=== PATIENT | male | born 1965 | race Caucasian/White ===

== ENCOUNTER 2022-05-29 03:24 | Observation (INO) | payer BC ==
[2022-05-29] MEDS ORDERED: SODIUM CHLORIDE 0.9% 500 ML 500 ML IV STA (04:06)
[2022-05-29] MEDS ORDERED: SODIUM CHLORIDE 0.9% 1,000 ML IV STA (04:06)
--- NOTE | 2022-05-29 04:06 | ED ---
Arrhythmia/Palpitations HPI - General Chief Complaint: Arrhythmia/Palpitations Stated Complaint: SOB Source: patient, family, RN notes reviewed, old records reviewed Mode of arrival: wheelchair Limitations: no limitations - History of Present Illness Initial Comments: This is a 56-year-old male to the emergency department for evaluation. Patient coming in with increasing shortness of breath weakness lightheadedness especially change of position. Patient is no medical history the interjected patient is not by for quite some time. Patient is without chest pain but he does currently have lightheadedness and palpitations. No recent travel history sick contacts patient takes no significant medications on a daily basis. No surgical history. Patient denies any drugs or alcohol or any other complaints currently. MD Complaint: rapid heart beat, "heart racing", palpitations, irregular heart beat, atrial fibrillation -: hour(s) Context: occurred during rest Arrhythmia History: atrial fibrillation, SVT Associated Symptoms: chest pain, shortness of breath Treatments Prior to Arrival: other (0) - Related Data Previous Rx's Medication Instructions Recorded Amiodarone [Cordarone] 400 mg PO BID #120 tab 05/29/22 Apixaban [Eliquis] 5 mg PO BID #60 tab 05/29/22 Allergies Allergy/AdvReac Type Severity Reaction Status Date / Time No Known Allergies Allergy Verified 05/29/22 06:26 Review of Systems ROS Statement: Those systems with pertinent positive or pertinent negative responses have been documented in the HPI. ROS Other: All systems not noted in ROS Statement are negative. Past Medical History Past Medical History: Hypertension History of Any Multi-Drug Resistant Organisms: None Reported Past Surgical History: No Surgical Hx Reported Past Psychological History: No Psychological Hx Reported Smoking Status: Current every day smoker Past Alcohol Use History: Daily Past Drug Use History: None Reported - Past Family History Mother Family Medical History: Cancer General Exam Limitations: no limitations General appearance: alert, in no apparent distress, anxious Head exam: Present: atraumatic, normocephalic, normal inspection Eye exam: Present: normal appearance, PERRL, EOMI. Absent: scleral icterus, conjunctival injection, periorbital swelling ENT exam: Present: normal exam, mucous membranes moist Neck exam: Present: normal inspection. Absent: tenderness, meningismus, lymphadenopathy Respiratory exam: Present: normal lung sounds bilaterally. Absent: respiratory distress, wheezes, rales, rhonchi, stridor Cardiovascular Exam: Present: tachycardia, irregular rhythm, normal heart sounds. Absent: systolic murmur, diastolic murmur, rubs, gallop, clicks GI/Abdominal exam: Present: soft, normal bowel sounds. Absent: distended, tenderness, guarding, rebound, rigid Extremities exam: Present: normal inspection, full ROM, normal capillary refill. Absent: tenderness, pedal edema, joint swelling, calf tenderness Back exam: Present: normal inspection Neurological exam: Present: alert, oriented X3, CN II-XII intact Psychiatric exam: Present: normal affect, normal mood Skin exam: Present: warm, dry, intact, normal color. Absent: rash Course Vital Signs 05/29/22 05/29/22 05/29/22 03:26 04:05 04:52 Temperature 98.2 F Pulse Rate 128 H 148 H 131 H Pulse Rate [ 148 H Turning Machine Set Up Operator ] Respiratory 18 16 16 Rate Blood Pressure 172/82 112/82 114/96 O2 Sat by Pulse 93 L 92 L 96 Oximetry 05/29/22 05/29/22 05/29/22 04:56 05:10 05:30 Temperature Pulse Rate 101 H 122 H 108 H Pulse Rate [ Turning Machine Set Up Operator ] Respiratory 16 Rate Blood Pressure 132/84 109/69 112/88 O2 Sat by Pulse 96 Oximetry 05/29/22 05/29/22 06:00 06:24 Temperature Pulse Rate 124 H 133 H Pulse Rate [ Turning Machine Set Up Operator ] Respiratory Rate Blood Pressure 120/52 101/90 O2 Sat by Pulse Oximetry - Reevaluation(s) Reevaluation #1: 05/29/22 medical record is reviewed Reevaluation #2: 05/29/22 Patient informed results and questions answered Reevaluation #3: 05/29/22 Patient does have difficulty control heart rate will be admitted for further evaluation cardiology to see - Consultations Consultation #1: Spoke with Admitting physicians agreeable to admit this patient EKG Findings - EKG Comments: EKG Findings:: EKG shows A. fib with RVR 145 QRS 104 QTC 365 Medical Decision Making - Medical Decision Making 56 male to the emergency department with shortness of breath weakness and palpitations. Patient found to be in atrial fibrillation with RVR. Patient be admitted for cardiology evaluation management. - Lab Data Result diagrams: 05/29/22 03:54 05/29/22 03:54 Lab Results 05/29/22 05/29/22 05/29/22 Range/Units 03:54 03:54 03:54 WBC 6.7 (3.8-10.6) k/uL RBC 5.68 (4.30-5.90) m/uL Hgb 17.9 H (13.0-17.5) gm/dL Hct 55.0 H (39.0-53.0) % MCV 96.8 (80.0-100.0) fL MCH 31.6 (25.0-35.0) pg MCHC 32.6 (31.0-37.0) g/dL RDW 13.3 (11.5-15.5) % Plt Count 160 (150-450) k/uL MPV 7.5 Neutrophils % 65 % Lymphocytes % 20 % Monocytes % 8 % Eosinophils % 1 % Basophils % 2 % Neutrophils # 4.4 (1.3-7.7) k/uL Lymphocytes # 1.4 (1.0-4.8) k/uL Monocytes # 0.5 (0-1.0) k/uL Eosinophils # 0.1 (0-0.7) k/uL Basophils # 0.1 (0-0.2) k/uL PT 10.8 (9.0-12.0) sec INR 1.0 (<1.2) APTT 24.4 (22.0-30.0) sec Sodium 139 (137-145) mmol/L Potassium 4.6 (3.5-5.1) mmol/L Chloride 103 (98-107) mmol/L Carbon Dioxide 30 (22-30) mmol/L Anion Gap 6 mmol/L BUN 13 (9-20) mg/dL Creatinine 0.92 (0.66-1.25) mg/dL Est GFR (CKD-EPI)AfAm >90 (>60 ml/min/1.73 sqM) Est GFR (CKD-EPI)NonAf >90 (>60 ml/min/1.73 sqM) Glucose 122 H (74-99) mg/dL Calcium 9.3 (8.4-10.2) mg/dL Magnesium 2.1 (1.6-2.3) mg/dL Total Bilirubin 0.4 (0.2-1.3) mg/dL AST 39 (17-59) U/L ALT 49 (4-49) U/L Alkaline Phosphatase 118 (38-126) U/L Troponin I (0.000-0.034) ng/mL Total Protein 7.2 (6.3-8.2) g/dL Albumin 4.2 (3.5-5.0) g/dL TSH 2.070 (0.465-4.680) mIU/L 05/29/22 Range/Units 03:54 WBC (3.8-10.6) k/uL RBC (4.30-5.90) m/uL Hgb (13.0-17.5) gm/dL Hct (39.0-53.0) % MCV (80.0-100.0) fL MCH (25.0-35.0) pg MCHC (31.0-37.0) g/dL RDW (11.5-15.5) % Plt Count (150-450) k/uL MPV Neutrophils % % Lymphocytes % % Monocytes % % Eosinophils % % Basophils % % Neutrophils # (1.3-7.7) k/uL Lymphocytes # (1.0-4.8) k/uL Monocytes # (0-1.0) k/uL Eosinophils # (0-0.7) k/uL Basophils # (0-0.2) k/uL PT (9.0-12.0) sec INR (<1.2) APTT (22.0-30.0) sec Sodium (137-145) mmol/L Potassium (3.5-5.1) mmol/L Chloride (98-107) mmol/L Carbon Dioxide (22-30) mmol/L Anion Gap mmol/L BUN (9-20) mg/dL Creatinine (0.66-1.25) mg/dL Est GFR (CKD-EPI)AfAm (>60 ml/min/1.73 sqM) Est GFR (CKD-EPI)NonAf (>60 ml/min/1.73 sqM) Glucose (74-99) mg/dL Calcium (8.4-10.2) mg/dL Magnesium (1.6-2.3) mg/dL Total Bilirubin (0.2-1.3) mg/dL AST (17-59) U/L ALT (4-49) U/L Alkaline Phosphatase (38-126) U/L Troponin I <0.012 (0.000-0.034) ng/mL Total Protein (6.3-8.2) g/dL Albumin (3.5-5.0) g/dL TSH (0.465-4.680) mIU/L Critical Care Time Critical Care Time: Yes Total Critical Care Time: 31 Disposition Clinical Impression: Palpitations, Atrial fibrillation with rapid ventricular response, Atrial fibrillation, New onset atrial fibrillation Disposition: ADMITTED IP TO THIS HOSP Condition: Fair Is patient prescribed a controlled substance at d/c from ED?: No Time of Disposition: 05:45
[2022-05-29 04:14] LABS: Basophils # (A) 0.1 k/uL (0-0.2); Basophils % (A) 2 %; Eosinophils # (A) 0.1 k/uL (0-0.7); Eosinophils % (A) 1 %; HGB 17.9 gm/dL (13.0-17.5); Lymphocytes # (A) 1.4 k/uL (1.0-4.8); Lymphocytes % (A) 20 %; MCH 31.6 pg (25.0-35.0); MCHC 32.6 g/dL (31.0-37.0); MCV 96.8 fL (80.0-100.0); Mean Platelet Volume 7.5; Monocytes # (A) 0.5 k/uL (0-1.0); Monocytes % (A) 8 %; Neutrophils # (A) 4.4 k/uL (1.3-7.7); Neutrophils % (A) 65 %; Platelet Count 160 k/uL (150-450); RBC 5.68 m/uL (4.30-5.90); RDW 13.3 % (11.5-15.5); WBC 6.7 k/uL (3.8-10.6)
[2022-05-29 04:19] LABS: ALT 49 U/L (4-49); AST 39 U/L (17-59); African American GFR (CKD) >90 (>60 ml/min/1.73 sqM); Albumin 4.2 g/dL (3.5-5.0); Alkaline Phosphatase 118 U/L (38-126); Anion Gap 6 mmol/L; Blood Urea Nitrogen 13 mg/dL (9-20); Calcium 9.3 mg/dL (8.4-10.2); Carbon Dioxide 30 mmol/L (22-30); Chloride 103 mmol/L (98-107); Glucose 122 mg/dL (74-99); Magnesium 2.1 mg/dL (1.6-2.3); Non-African American GFR(CKD) >90 (>60 ml/min/1.73 sqM); Potassium 4.6 mmol/L (3.5-5.1); Sodium 139 mmol/L (137-145); Total Bilirubin 0.4 mg/dL (0.2-1.3); Total Protein 7.2 g/dL (6.3-8.2)
[2022-05-29] MEDS ORDERED: DILTIAZEM DRIP BOLUS FROM BAG 1 MG SOLN IV ONE (04:26)
[2022-05-29] MEDS ORDERED: DILTIAZEM 125 MG in SODIUM CHLORIDE 0.9% 100 ML IV SCH (04:30)
[2022-05-29 04:38] LABS: Partial Thromboplastin Time 24.4 sec (22.0-30.0); Prothrombin Time 10.8 sec (9.0-12.0)
--- NOTE | 2022-05-29 05:14 | XR ---
EXAMINATION TYPE: XR chest 2V DATE OF EXAM: 05/29/2022 COMPARISON: NONE HISTORY: Dysrhythmia. TECHNIQUE: Frontal and lateral views of the chest are obtained. FINDINGS: Overlying EKG leads are present. Suggestion of mild underlying emphysematous change on late ral view. There is no suspicious focal air space opacity, pleural effusion, or pneumothorax seen. Th e cardiac silhouette size is within normal limits. The osseous structures are intact. IMPRESSION: No acute process.
[2022-05-29] MEDS ORDERED: NITROGLYCERIN SL TABS 0.4 MG TAB SUBLINGUAL PRN (05:44)
[2022-05-29] MEDS ORDERED: HEPARIN SODIUM 1,000 UN/ML (10ML VL) IV ONE (05:44)
[2022-05-29] MEDS ORDERED: MORPHINE SULFATE 4 MG/ML SYRINGE IV PRN (05:44)
[2022-05-29] MEDS ORDERED: SODIUM CHLORIDE 0.9% 1,000 ML IV SCH (05:45)
[2022-05-29] MEDS ORDERED: HEPARIN SOD,PORK IN 0.45% NACL 25,000 UNIT in 0.45% NACL 1 250ML.BAG IV SCH (05:45)
--- NOTE | 2022-05-29 06:18 | P.HPIM ---
History of Present Illness H&P Date: 05/29/22 The patient is a 56-year-old male with no known PMH (has not seen a physician in 10 years) who presents to the emergency room with complaints of sudden onset of palpitations and shortness of breath. Patient reports that over the past few months, he has been expressing intermittent palpitations which are normally self-limiting. He reports however that earlier tonight at around 2 AM he was woken up from sleep with above-mentioned palpitations and shortness of breath but more severe in intensity, and persistent. He became alarmed and decided to come to the emergency room. EKG revealed A. fib with RVR at 145 bpm with left anterior fascicular block. Chest x-ray was unremarkable. Laboratory evaluation was unremarkable. The patient denied any prior history of A. fib or being on any anticoagulants. He reported a single episode of nonbloody nonbilious emesis in route to the hospital. He denies recent chest discomfort, fever, chills, cough, abdominal pain, diarrhea. Reports that his symptoms had improved significantly after arrival at the emergency room. Review of systems: Pertinent positives and negatives as discussed in HPI, a complete review of systems was performed and all other systems are negative. Physical examination: General: non toxic, no distress, appears at stated age, obese Derm: no unusual rashes/lesions, warm Head: atraumatic, normocephalic, symmetric Eyes: EOMI, no lid lag, anicteric sclera, pupils equal round reactive to light ENT: Nose and ears atraumatic Neck: No cervical lymphadenopathy, trachea midline, supple Mouth: no lip lesion, mucus membranes moist Cardiovascular: Irregularly irregular, tachycardic, no murmur, positive dorsalis pedis pulse bilateral, no edema Lungs: CTA bilateral, no rhonchi, no rales, no accessory muscle use Abdominal: soft, nontender to palpation, no guarding Ext: muscle strength 5 out of 5 in all 4 extremities grossly, no gross muscle atrophy, no contractures, Neuro: CN II-XI grossly intact, no gross focal neuro deficits Psych: Alert, oriented, appropriate affect Assessment/plan Newly diagnosed A. fib with RVR -Continue with heparin and Cardizem infusion -Cardiology consult -Cardiac monitoring -Echocardiogram Hyperglycemia -Check A1c DVT prophylaxis -Heparin infusion The patient is admitted with an anticipated greater than 2 midnight stay for evaluation of afib. CODE STATUS: Full Code Discussed with: Patient Anticipated discharge date: 2-[address]: Home Past Medical History Past Medical History: Hypertension History of Any Multi-Drug Resistant Organisms: None Reported Past Surgical History: No Surgical Hx Reported Past Psychological History: No Psychological Hx Reported Smoking Status: Current every day smoker Past Alcohol Use History: Daily Past Drug Use History: None Reported - Past Family History Mother Family Medical History: Cancer Medications and Allergies Allergies Allergy/AdvReac Type Severity Reaction Status Date / Time No Known Allergies Allergy Verified 05/29/22 03:34 Physical Exam Vitals: Vital Signs Temp Pulse Pulse Resp BP Pulse Ox 05/29/22 05:30 108 H 112/88 05/29/22 05:10 122 H 109/69 05/29/22 04:56 101 H 16 132/84 96 05/29/22 04:52 131 H 16 114/96 96 05/29/22 04:05 148 H 148 H 16 112/82 92 L 05/29/22 03:26 98.2 F 128 H 18 172/82 93 L Intake and Output 05/28/22 05/28/22 05/29/22 14:59 22:59 06:59 Intake Total 3.917 Balance 3.917 Intake: Intake, IV Titration 3.917 Amount Diltiazem 125 mg In 3.917 Sodium Chloride 0.9% 100 ml @ 5 MG/HR 5 mls/hr IV .Q24H [facility] Rx#:[id number] Other: Weight 131.542 kg Results CBC & Chem 7: 05/29/22 03:54 05/29/22 03:54 Labs: Abnormal Lab Results - Last 24 Hours (Table) 05/29/22 05/29/22 Range/Units 03:54 03:54 Hgb 17.9 H (13.0-17.5) gm/dL Hct 55.0 H (39.0-53.0) % Glucose 122 H (74-99) mg/dL
[2022-05-29] MEDS ORDERED: ATORVASTATIN 80 MG TAB PO SCH (09:00)
[2022-05-29] MEDS ORDERED: METOPROLOL TARTRATE 25 MG TAB PO SCH (09:00)
[2022-05-29] MEDS ORDERED: DEXTROSE 5% IN WATER 100 ML with AMIODARONE 150 MG IV ONE (10:33)
[2022-05-29] MEDS ORDERED: AMIODARONE 360 MG in DEXTROSE 5% IN WATER 200 ML IV ONE ×2 (10:33)
[2022-05-29] MEDS ORDERED: AMIODARONE 450 MG in DEXTROSE 5% IN WATER 250 ML IV SCH ×2 (10:45)
--- NOTE | 2022-05-29 11:35 | P.PN ---
Progress Note - Text Progress Note Date: 05/29/22 Patient was seen and examined. He is still in a-fib. He is feeling better however. Awaiting cardio evaluation.
[2022-05-29] MEDS ORDERED: NICOTINE 21MG/24HR PATCH TRANSDERM SCH (11:45)
--- NOTE | 2022-05-29 12:11 | P.CRDCN ---
History of Present Illness History of present illness: HISTORY OF PRESENTING ILLNESS This is a pleasant 56-year-old male past medical history significant for daily alcohol use (drinks 6-8 beers per day) and chronic nicotine dependence (smokes 1.5 PPD). 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 We have been asked to see in consultation for new onset atrial fibrillation. Patient presents emergency department with acute onset palpitations, shortness of breath, dizziness, generalized weakness and nausea and vomiting. He states that his symptoms of palpitations woke him up out of his sleep prior to admission and symptoms progressively got worse and came to the ER for further evaluation. He was found in A fib with RVR. Patient initially started on IV heparin and IV Cardizem drip. He denies any chest pain, syncope, near syncope. at bedside and endorses patient does snore heavily at night and she notices he does stop breathing at night. He denies any history of CAD, IA, hypertension, diabetes, hyperlipidemia. He denies any family history of heart disease. DIAGNOSTICS EKG reveals atrial fibrillation with rapid ventricular response, heart rate 145. Telemetry tracings indicate atrial fibrillation, heart rate or better controlled this morning however patient remains tachycardic up into the 120s at times. Chest xray no acute heart failure or consolidation noted. Laboratory reviewed, troponin negative 2, sodium 139, potassium 4.6, BUN 13, serum creatinine 0.9, magnesium 2.1, TSH within normal limits, WBC 6.7, hemoglobin 17.9, platelets 160 Current home medications include none REVIEW OF SYSTEMS At the time of my exam: CONSTITUTIONAL: Denies fever or chills. CARDIOVASCULAR: Denies chest pain, +shortness of breath, orthopnea, PND Endorses palpitations. RESPIRATORY: Denies cough. GASTROINTESTINAL: Denies abdominal pain, diarrhea, constipation,+ nausea +vomiting. MUSCULOSKELETAL: Denies myalgias. NEUROLOGIC: Denies numbness, tingling, headacbe or weakness. ENDOCRINE: Denies fatigue, weight change, polydipsia or polyurina. GENITOURINARY: Denies burning, hematuria or urgency with micturation. HEMATOLOGIC: Denies history of anemia or bleeding. PHYSICAL EXAMINATION Vitals Reviewed CONSTITUTIONAL: No apparent distress. HEENT: Head is normocephalic. Pupils are equal, round. Sclerae anicteric. Mucous membranes of the mouth are moist. No JVD. CHEST EXAMINATION: Lungs are clear to auscultation. No chest wall tenderness is noted on palpation or with deep breathing. HEART EXAMINATION: Irregular tachycardic rate and rhythm. S1, S2 heard. No murmurs, gallops or rub. ABDOMEN: Soft, nontender. Positive bowel sounds. EXTREMITIES: 2+ peripheral pulses, no lower extremity edema and no calf tenderness. SKIN: warm,dry NEUROLOGIC EXAMINATION: Patient is awake, alert and oriented x3. ASSESSMENT Paroxysmal atrial fibrillation with RVR -[id number] score 0 Daily alcohol use Chronic nicotine dependence Likely obstructive sleep apnea, needs outpatient testing PLAN Start IV amiodarone bolus and drip Discontinue cardizem Continue IV heparin Metoprolol tartrate 25mg BID Recommend SRIRAM cardioversion, patient is agreeable. I have discussed the risks, benefits and alternative therapies for the above-mentioned procedure and for both sedation/analgesia, as they pertain to this patient. The patient has indicated understanding and acceptance of the risks and procedures discussed. Questions have been answered appropriately and he is agreeable to move forward with the above-stated procedure. Unfortunately patient was did receive breakfast around 8am this morning. Plan for possible SRIRAM cardioversion later today with Dr. Reeves. Nurse practitioner note has been reviewed by physician. Signing provider agrees with the documented findings, assessment, and plan of care. Past Medical History Past Medical History: Hypertension History of Any Multi-Drug Resistant Organisms: None Reported Past Surgical History: No Surgical Hx Reported Past Psychological History: No Psychological Hx Reported Smoking Status: Current every day smoker Past Alcohol Use History: Daily Past Drug Use History: None Reported - Past Family History Mother Family Medical History: Cancer Medications and Allergies Home Medications Medication Instructions Recorded Confirmed Type No Known Home Medications 05/29/22 05/29/22 History Allergies Allergy/AdvReac Type Severity Reaction Status Date / Time No Known Allergies Allergy Verified 05/29/22 06:26 Physical Exam Vitals: Vital Signs Temp Pulse Pulse Resp BP BP Pulse Ox 05/29/22 08:10 98.2 F 95 16 135/86 92 L 05/29/22 06:24 133 H 101/90 05/29/22 06:00 124 H 120/52 05/29/22 05:30 108 H 112/88 05/29/22 05:10 122 H 109/69 05/29/22 04:56 101 H 16 132/84 96 05/29/22 04:52 131 H 16 114/96 96 05/29/22 04:05 148 H 148 H 16 112/82 92 L 05/29/22 03:26 98.2 F 128 H 18 172/82 93 L Intake and Output 05/28/22 05/29/22 05/29/22 22:59 06:59 14:59 Intake Total 14.084 Balance 14.084 Intake: Intake, IV Titration 14.084 Amount Diltiazem 125 mg In 14.084 Sodium Chloride 0.9% 100 ml @ 5 MG/HR 5 mls/hr IV .Q24H [facility] Rx#:[id number] Other: Weight 131.542 kg Results 05/29/22 03:54 05/29/22 03:54 Cardiac Enzymes 05/29/22 05/29/22 05/29/22 Range/Units 03:54 03:54 08:24 AST 39 (17-59) U/L Troponin I <0.012 <0.012 (0.000-0.034) ng/mL Coagulation 05/29/22 Range/Units 03:54 PT 10.8 (9.0-12.0) sec APTT 24.4 (22.0-30.0) sec CBC 05/29/22 Range/Units 03:54 WBC 6.7 (3.8-10.6) k/uL RBC 5.68 (4.30-5.90) m/uL Hgb 17.9 H (13.0-17.5) gm/dL Hct 55.0 H (39.0-53.0) % Plt Count 160 (150-450) k/uL Comprehensive Metabolic Panel 05/29/22 Range/Units 03:54 Sodium 139 (137-145) mmol/L Potassium 4.6 (3.5-5.1) mmol/L Chloride 103 (98-107) mmol/L Carbon Dioxide 30 (22-30) mmol/L BUN 13 (9-20) mg/dL Creatinine 0.92 (0.66-1.25) mg/dL Glucose 122 H (74-99) mg/dL Calcium 9.3 (8.4-10.2) mg/dL AST 39 (17-59) U/L ALT 49 (4-49) U/L Alkaline Phosphatase 118 (38-126) U/L Total Protein 7.2 (6.3-8.2) g/dL Albumin 4.2 (3.5-5.0) g/dL Current Medications Generic Name Dose Route Start Last Admin Trade Name Freq PRN Reason Stop Dose Admin Atorvastatin Calcium 80 mg 05/29/22 09:00 05/29/22 08:14 Atorvastatin 80 Mg Tab PO 80 mg DAILY [facility] Administration Sodium Chloride 1,000 mls @ 20 mls/hr 05/29/22 05:45 Saline 0.9% IV .Q24H [facility] Heparin Sodium/Sodium Chloride 250 mls @ 9.997 mls/hr 05/29/22 05:45 05/29/22 06:47 25,000 unit/ Sodium Chloride IV 7.6 units/kg/hr .Q24H [facility] 9.997 mls/hr Administration Protocol 7.6 UNITS/KG/HR Amiodarone HCl 360 mg/ 200 mls @ 33.333 mls/hr 05/29/22 10:33 Dextrose/Water IV 05/29/22 16:32 .Q6H [facility] Protocol 1 MG/MIN Amiodarone HCl 450 mg/ 250 mls @ 16.667 mls/hr 05/29/22 10:45 Dextrose/Water IV 05/30/22 04:44 .Q15H [facility] Protocol 0.5 MG/MIN Metoprolol Tartrate 25 mg 05/29/22 09:00 05/29/22 08:14 Metoprolol Tartrate 25 Mg Tab PO 25 mg BID [facility] Administration Morphine Sulfate 4 mg 05/29/22 05:44 Morphine Sulfate 4 Mg/Ml Syringe IV Q4HR PRN Chest Pain Nicotine 1 patch 05/29/22 11:45 Nicotine 21mg/24hr Patch TRANSDERM DAILY [facility] Nitroglycerin 0.4 mg 05/29/22 05:44 Nitroglycerin Sl Tabs 0.4 Mg Tab SUBLINGUAL Q5M PRN Chest Pain Intake and Output 05/28/22 05/29/22 05/29/22 22:59 06:59 14:59 Intake Total 14.084 Balance 14.084 Intake: Intake, IV Titration 14.084 Amount Diltiazem 125 mg In 14.084 Sodium Chloride 0.9% 100 ml @ 5 MG/HR 5 mls/hr IV .Q24H [facility] Rx#:[id number] Other: Weight 131.542 kg 05/29/22 03:54 05/29/22 03:54
[2022-05-29] MEDS ORDERED: HEPARIN SODIUM 1,000 UN/ML (10ML VL) IVP ONE (12:46)
[2022-05-29] MEDS ORDERED: ALPRAZolam 0.5 MG TAB PO STA (13:24)
[2022-05-29] MEDS ORDERED: SODIUM CHLORIDE 0.9% 1,000 ML IV ONE (16:22)
[2022-05-29] MEDS ORDERED: BENZOCAINE SPRAY 1 CAN TOPICAL ONE ×2 (16:24→16:32)
[2022-05-29] MEDS ORDERED: PROPOFOL 10 MG/ML 20 ML VIAL IV ONE (16:30)
[2022-05-29] MEDS ORDERED: THIAMINE 100 MG/ML 2 ML VIAL IM STA (17:02)
[2022-05-29] MEDS ORDERED: LORazepam 1 MG/0.5 ML VIAL IV PRN ×3 (17:02)
[2022-05-29 17:09] VITALS: RESP 18; TEMP 97
[2022-05-29] MEDS ORDERED: LORazepam 1 MG TAB PO PRN ×3 (17:15→17:16)
--- NOTE | 2022-05-29 17:22 | P.PN ---
Subjective Patient underwent successful SRIRAM and cardioversion and is in sinus rhythm. Possible discharge home today or tomorrow morning on amiodarone 400 mg twice a day and Eliquis. Objective - Vital Signs Vital signs: Vital Signs Temp 97 F L 05/29/22 16:58 Pulse 62 05/29/22 17:13 Resp 18 05/29/22 17:13 BP 131/75 05/29/22 17:13 Pulse Ox 97 05/29/22 17:13 FiO2 Intake & Output 05/28/22 05/29/22 05/29/22 18:59 06:59 18:59 Intake Total 254.084 665.314 Balance 254.084 665.314 Weight 131.542 kg 131.542 kg Intake: IV 0 Intake, IV Titration 14.084 305.314 Amount Dextrose 5% in Water 100 100 ml @ 618 mls/hr IV .Q10M [facility] with Amiodarone 150 mg Rx#:[id number] Diltiazem 125 mg In 14.084 Sodium Chloride 0.9% 100 ml @ 5 MG/HR 5 mls/hr IV .Q24H [facility] Rx#:[id number] Heparin Sod,Pork in 0.45% 65.314 NaCl 25,000 unit In 0.45 % NaCl 1 250ml.bag @ 7.6 UNITS/KG/HR 9.997 mls/hr IV .Q24H [facility] Rx#: [id number] Sodium Chloride 0.9% 1, 140 000 ml @ 20 mls/hr IV . Q24H [facility] Rx#:[id number] Oral 240 360 Other: # Voids 2 - Labs CBC & Chem 7: 05/29/22 03:54 05/29/22 03:54 Labs: Abnormal Lab Results - Last 24 Hours (Table) 05/29/22 05/29/22 Range/Units 03:54 03:54 Hgb 17.9 H (13.0-17.5) gm/dL Hct 55.0 H (39.0-53.0) % Glucose 122 H (74-99) mg/dL
--- NOTE | 2022-05-29 17:22 | P.TEE ---
Description of Procedure(s): Procedure performed: Transesophageal Echocardiogram with color flow doppler, pulsed wave doppler and continuous wave doppler, moderate conscious sedation Moderate conscious sedation: Moderate conscious sedation was supplied by anesthesia, see separate report Complications: none Indications: Symptomatic A. fib PROCEDURE: After the risks, benefits and alternatives of the above mentioned procedure was explained in detail with the patient, informed consent was obtained. Patient was brought to the lab in a fasting state. Patient was given sedation by anesthesia. The throat was sprayed with Hurricane to anesthetize the throat. A lubricated Omni probe was then introduced into the esophagus and stomach and multiple views were obtained. 2D echo with color flow doppler, pulsed wave doppler and continuous wave doppler was utilized. Agitated saline bubbles were injected to assess for any intra-atrial shunt. The probe was then removed. Synchronized cardioversion was performed with 200 J 1 with resultant sinus rhythm. Patient tolerated the procedure well. Patient was transferred to the post procedure area in stable and satisfactory condition. FINDINGS: 1. The aortic valve is tricuspid and functioning normally without any significant aortic stenosis or aortic regurgitation. 2. The mitral valve appears be normal with mild mitral regurgitation. 3. Tricuspid valve appears to be normal without significant regurgitation. 4. The interatrial septum is intact. No evidence of PFO. 5. Left atrial appendage is free of clot. 6. Left ventricular size and function is normal with left ventricular ejection fraction 55%.
[2022-05-29 17:24] VITALS: BP 141/75; PULSE 64
--- NOTE | 2022-05-29 18:43 | CA ---
Transthoracic Echo Report Name: Jose Chang Age: 56 Gender: M : 1965 Exam Date: 05/29/2022 12:53 Exam Location: [facility] Ht (in): 76 Wt (lb): 290 Ordering Physician: Joana Camp MD Attending/Referring Phys: Marketing Development Representative Irlanda Mcintosh RDCS Procedure CPT: Indications: a. fib Cardiac Hx: Technical Quality: Fair Contrast 1: Total Dose (mL): Contrast 2: Total Dose (mL): MEASUREMENTS (Male / Female) Normal Values 2D ECHO LV Diastolic Diameter PLAX 4.9 cm 4.2 - 5.9 / 3.9 - 5.3 cm LV Systolic Diameter PLAX 3.1 cm IVS Diastolic Thickness 1.6 cm 0.6 - 1.0 / 0.6 - 0.9 cm LVPW Diastolic Thickness 1.5 cm 0.6 - 1.0 / 0.6 - 0.9 cm LV Relative Wall Thickness 0.6 RV Internal Dim ED PLAX 4.2 cm LA Volume 81.2 cm??? 18 - 58 / 22 - 52 cm??? M-MODE Aortic Root Diameter MM 3.2 cm LA Systolic Diameter MM 4.5 cm LA Ao Ratio MM 1.4 AV Cusp Separation MM 2.1 cm DOPPLER AV Peak Velocity 145.5 cm/s AV Peak Gradient 8.5 mmHg LVOT Peak Velocity 112.3 cm/s LVOT Peak Gradient 5.0 mmHg TR Peak Velocity 257.5 cm/s TR Peak Gradient 26.5 mmHg Right Ventricular Systolic Press 31.5 mmHg FINDINGS Left Ventricle Moderately increased septal wall thickness. Normal left ventricular systolic function with no obvious regional wall motion abnormalities. Left ventricular ejection fraction is estimated at 55-60 %. Right Ventricle Moderate right ventricular dilatation. Right Atrium Moderate right atrial dilatation. Left Atrium Severely increased left atrial volume. Mitral Valve Mild mitral annular calcification. Xdkv-gu-[id number] regurgitation. Aortic Valve Trileaflet aortic valve. No aortic valve stenosis or regurgitation. Tricuspid Valve Mild tricuspid regurgitation. Pulmonic Valve Trace pulmonic regurgitation. Pericardium No pericardial effusion. Aorta Normal size aortic root and proximal ascending aorta. CONCLUSIONS Normal left ventricular dimension and systolic function [id number] mitral regurgitation Previewed by: Dr. Estevan Pulido MD (Electronically Signed) Final Date: 29 May 2022 18:42
[2022-05-29] MEDS ORDERED: AMIODARONE 200 MG TAB PO SCH (21:00)
[2022-05-29] MEDS ORDERED: APIXABAN 5 MG TAB PO SCH (21:00)
[2022-05-30] MEDS ORDERED: THIAMINE 100 MG TAB PO SCH (07:30)
[2022-05-30] MEDS ORDERED: ASPIRIN 325 MG TAB PO SCH (09:00)
--- NOTE | 2022-05-30 14:25 | P.DS ---
Providers Date of admission: 05/29/22 05:44 Expected date of discharge: 05/30/22 Attending physician: Joana Camp MD Consults: 05/29/22 05:44 Consult Physician Urgent Consulting Provider: Suzanne Mahajan Consult Reason/Comments: afibRVR Do you want consulting provider notified?: Yes Primary care physician: Stated None Hospital Course: 56-year-old male with no known PMH (has not seen a physician in 10 years) who presents to the emergency room with complaints of sudden onset of palpitations and shortness of breath. Patient reports that over the past few months, he has been having intermittent palpitations which are normally self-limiting. He became alarmed after he noticed worsening of those palpitations and decided to come to the emergency room. He reported a single episode of nonbloody nonbilious emesis in route to the hospital. He denies recent chest discomfort, fever, chills, cough, abdominal pain, diarrhea. In the ER EKG revealed A. fib with RVR at 145 bpm with left anterior fascicular block. Chest x-ray was unremarkable. Laboratory evaluation was unremarkable. Patient was admitted, he was started on heparin and Cardizem drips. Heart rate was controlled after that but he remained in A. fib. Due to that he was seen by cardiology who did a SRIRAM with cardioversion. SRIRAM did not show any blood clots in the heart. It showed normal structure of the valves and normal EF. After cardioversion he remained in normal sinus rhythm. He was initiated on eliquis and amiodarone according to cardiology recommendations. He was subsequently discharged home in stable condition. Time for discharge 35 minutes. Patient Condition at Discharge: Fair Plan - Discharge Summary Discharge Rx Participant: Yes New Discharge Prescriptions: New Amiodarone [Cordarone] 400 mg PO BID #120 tab Apixaban [Eliquis] 5 mg PO BID #60 tab Discharge Medication List Amiodarone [Cordarone] 400 mg PO BID #120 tab 05/29/22 [Rx] Apixaban [Eliquis] 5 mg PO BID #60 tab 05/29/22 [Rx] Follow up Appointment(s)/Referral(s): Dario Reeves DO [STAFF PHYSICIAN] - 1 Week (Pt to make follow-up appointment, as office is closed at time of discharge. Ensure office is aware that the appointment is following a hospital stay and that the pt had a cardioversion on 05/29/22.) None,Stated [Primary Care Provider] - 1-2 days (Pt will need a primary care provider to follow up with for medication refills and general health.) Juan Bernard [STAFF PHYSICIAN] - 1 Week Patient Instructions/Handouts: A-fib (Atrial Fibrillation) (DC), Cardioversion (DC) Activity/Diet/Wound Care/Special Instructions: Activity: as tolerated Diet: regular Special Instructions: Please picker and sorter load and unload your new prescriptions first thing in the morning. You will need to start them first thing tomorrow morning. Discharge Disposition: HOME SELF-CARE
== END 2022-05-29 19:05 | disposition home or self-care (01) ==
LOC: EC 03:24 → 3SCARD 05:44 → INTOOBSV 05:44 → 3SCARD 06:03 → UNDODISIN 19:05
PROVIDERS: ADMIT Internal Medicine; ATTEND Internal Medicine
PROC: B246ZZ4 Ultrasonography of Right and Left Heart, Transesophageal (ICD-10-PCS; principal; 2022-05-29 10:00)
PROC: 5A2204Z Restoration of Cardiac Rhythm, Single (ICD-10-PCS; principal; 2022-05-29 10:00)
DX: I48.0 Paroxysmal atrial fibrillation (principal); I10 Essential (primary) hypertension; I44.4 Left anterior fascicular block; I47.1 Supraventricular tachycardia; I08.1 Rheumatic disorders of both mitral and tricuspid valves; R73.9 Hyperglycemia, unspecified; Z80.9 Family history of malignant neoplasm, unspecified; F17.210 Nicotine dependence, cigarettes, uncomplicated; Z28.310 Unvaccinated for COVID-19
CPT/HCPCS: 96376 ×2; 96366 ×2; 96361; 96365; 96367; 99291; 36415; 93005 ×2; 93312; 93320; 93306; 93325; 92960; 80053; 83735; 84443; 84484; 85025; 85610; 85730; 71046; G0378; S4990; J0282 ×2; J1644 ×2; J2704; 96375; 99285

== ENCOUNTER 2023-04-22 07:25 | Observation (INO) | payer BC ==
[2023-04-22] MEDS ORDERED: SODIUM CHLORIDE 0.9% 500 ML 500 ML IV STA (07:47)
--- NOTE | 2023-04-22 08:08 | XR ---
EXAMINATION TYPE: XR chest 2V DATE OF EXAM: 04/22/2023 COMPARISON: 05/29/2022 HISTORY: 57-year-old male dysrhythmia TECHNIQUE: PA and lateral views FINDINGS: Heart upper limits of normal size. Aorta and pulmonary vasculature normal limits. Mild interstitial p rominence is unchanged. No consolidation or pleural effusion. IMPRESSION: Borderline heart size. Chronic changes. No definite acute process.
[2023-04-22] MEDS: DILTIAZEM DRIP BOLUS FROM BAG 1 MG SOLN IV ONE ×2 (08:17→08:19)
[2023-04-22] MEDS: DILTIAZEM 125 MG in SODIUM CHLORIDE 0.9% 100 ML IV SCH ×2 (08:19→16:44)
[2023-04-22 08:27] LABS: ALT 42 U/L (4-49); AST 30 U/L (17-59); African American GFR (CKD) >90 (>60 ml/min/1.73 sqM); Albumin 3.9 g/dL (3.5-5.0); Alkaline Phosphatase 82 U/L (38-126); Anion Gap 5 mmol/L; Blood Urea Nitrogen 12 mg/dL (9-20); Calcium 8.9 mg/dL (8.4-10.2); Carbon Dioxide 28 mmol/L (22-30); Chloride 105 mmol/L (98-107); Glucose 109 mg/dL (74-99); HCT 51.7 % (39.0-53.0); MCH 30.4 pg (25.0-35.0); MCHC 32.9 g/dL (31.0-37.0); MCV 92.6 fL (80.0-100.0); Mean Platelet Volume 7.8; Non-African American GFR(CKD) >90 (>60 ml/min/1.73 sqM); Platelet Count 156 k/uL (150-450); Potassium 5.2 mmol/L (3.5-5.1); RBC 5.58 m/uL (4.30-5.90); RDW 13.3 % (11.5-15.5); Sodium 138 mmol/L (137-145); Total Bilirubin 0.4 mg/dL (0.2-1.3); Total Protein 6.8 g/dL (6.3-8.2); WBC 4.7 k/uL (3.8-10.6)
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
[2023-04-22 09:03] LABS: Lymphocytes # (M) 1.22 k/uL (1.0-4.8); Monocytes # (M) 0.42 k/uL (0-1.0); Neutrophils # (M) 3.06 k/uL (1.3-7.7); Neutrophils % (M) 65 %; Nucleated Red Blood Cells 0 /100 WBC (0-0); Total Cells Counted 100
[2023-04-22 09:04] LABS: RBC Morphology Normal
[2023-04-22] MEDS ORDERED: NITROGLYCERIN SL TABS 0.4 MG TAB SUBLINGUAL PRN (10:09)
[2023-04-22] MEDS ORDERED: APIXABAN 5 MG TAB PO SCH (10:10)
[2023-04-22] MEDS ORDERED: NICOTINE 21MG/24HR PATCH TRANSDERM STA (11:04)
--- NOTE | 2023-04-22 11:06 | P.HPIM ---
History of Present Illness This is a pleasant 57 years old male with past medical history of atrial Fibrillation, Hypertension Patient states that he was diagnosed with A. fib last May and his been taken Eliquis 5 mg and amiodarone 200 mg with no problem Recently he has been following up with his coating machine operator helper was stopped the stool medication because he thought he does not need them anymore. Patient did not have problem for example bleeding from Eliquis. This morning start having palpitation. He denies any other symptoms. Chest pain dizziness or dyspnea. No change in urine or bowel habits. No fever. No headache weakness numbness or blurred vision or slurred speech Patient smokes 1 pack per day and he was consulted. He drinks beers few of them every day and he was counseled to quit. No illicit tracts His heart rate was elevated 1:30 on admission EKG showing atrial fibrillation with RVR and 105 Another EKG showing A. fib and RVR at the rate of 99 Chest x-ray: No acute process. Patient is started on Cardizem drip and Eliquis and emergency room Review of Systems Review of systems CONSTITUTIONAL: No fever, no malaise, no fatigue. HEENT: No recent visual problems or hearing problems. Denied any sore throat. CARDIOVASCULAR: No orthopnea, PND, no palpitations, no syncope. PULMONARY: No shortness of breath, no cough, no hemoptysis. GASTROINTESTINAL: No diarrhea, no nausea, no vomiting, no abdominal pain. Normoactive bowel sounds. NEUROLOGICAL: No headaches, no weakness, no numbness. HEMATOLOGICAL: Denies any bleeding or petechiae. GENITOURINARY: Denies any burning micturition, frequency, or urgency. MUSCULOSKELETAL/RHEUMATOLOGICAL: Denies any joint pain, swelling, or any muscle pain. ENDOCRINE: Denies any polyuria or polydipsia. Past Medical History Past Medical History: Atrial Fibrillation, Hypertension History of Any Multi-Drug Resistant Organisms: None Reported Past Surgical History: Hernia Repair Additional Past Surgical History / Comment(s): hernia repair in 1987 Past Anesthesia/Blood Transfusion Reactions: No Reported Reaction Past Psychological History: No Psychological Hx Reported Smoking Status: Current every day smoker Past Alcohol Use History: Daily Past Drug Use History: None Reported - Past Family History Mother Family Medical History: Cancer Medications and Allergies Home Medications Medication Instructions Recorded Confirmed Type No Known Home Medications 04/22/23 04/22/23 History Allergies Allergy/AdvReac Type Severity Reaction Status Date / Time No Known Allergies Allergy Verified 04/22/23 09:31 Physical Exam Vitals: Vital Signs Temp Pulse Pulse Resp BP Pulse Ox 04/22/23 09:30 98 18 132/80 95 04/22/23 09:00 93 20 121/87 97 04/22/23 08:11 114 H 18 96 04/22/23 08:00 106 H 106 H 18 147/104 96 04/22/23 07:29 98 F 130 H 18 150/90 97 Intake and Output 04/21/23 04/22/23 04/22/23 22:59 06:59 14:59 Intake Total 8.083 Balance 8.083 Intake: Intake, IV Titration 8.083 Amount Diltiazem 125 mg In 8.083 Sodium Chloride 0.9% 100 ml @ 5 MG/HR 5 mls/hr IV .Q24H [facility] Rx#:[id number] Other: Weight 131.542 kg GENERAL: The patient is alert and oriented x3, not in any acute distress. Well developed, well nourished. HEENT: Pupils are round and equally reacting to light. EOMI. No scleral icterus. No conjunctival pallor. Normocephalic, atraumatic. No pharyngeal erythema. No thyromegaly. CARDIOVASCULAR: S1 and S2 present. No murmurs, rubs, or gallops. PULMONARY: Chest is clear to auscultation, no wheezing or crackles. ABDOMEN: Soft, nontender, nondistended, normoactive bowel sounds. No palpable organomegaly. MUSCULOSKELETAL: No joint swelling or deformity. EXTREMITIES: No cyanosis, clubbing, or pedal edema. NEUROLOGICAL: Gross neurological examination did not reveal any focal deficits. SKIN: No rashes. no petechiae. Results CBC & Chem 7: 04/22/23 07:55 04/22/23 07:55 Labs: Abnormal Lab Results - Last 24 Hours (Table) 04/22/23 Range/Units 07:55 Potassium 5.2 H (3.5-5.1) mmol/L Glucose 109 H (74-99) mg/dL Assessment and Plan Assessment: A. fib with RVR Nicotine dependence, patient has consulted and is agreeable to the nicotine patch Alcohol use disorder Hypertension, currently on no medication Obesity with BMI of 35.3 Plan: Continue with Cardizem drip Continue with Eliquis 5 mg twice a day, patient is aware of risk of bleeding and he is agreeable to continue with a blood thinner now Cardiology consult Start CIWA protocol and thiamine Labs and medication were reviewed.. Continue same treatment. Continue with symptomatic treatment. Resume home medication. Monitor labs and vitals. DVT and GI prophylaxis. Further recommendations as per clinical course of the patient DVT prophylaxis: Eliquis GI Prophylaxis: Pepcid PT/OT: Pending Prognosis is guarded
[2023-04-22] MEDS ORDERED: LORazepam 1 MG TAB PO PRN ×3 (11:11)
[2023-04-22] MEDS: THIAMINE 100 MG TAB PO SCH (11:41)
[2023-04-22] MEDS: LORazepam 0.5 MG TAB PO PRN ×2 (15:51→21:34)
[2023-04-22] MEDS ORDERED: FAMOTIDINE 20 MG/2 ML VIAL IV SCH (21:00)
[2023-04-22] MEDS: APIXABAN 5 MG TAB PO SCH (21:34)
[2023-04-23 03:11] VITALS: PULSE 68
[2023-04-23 07:35] LABS: Basophils % (A) 1 %; Eosinophils # (A) 0.1 k/uL (0-0.7); Eosinophils % (A) 2 %; HCT 50.8 % (39.0-53.0); HGB 16.3 gm/dL (13.0-17.5); Lymphocytes # (A) 1.3 k/uL (1.0-4.8); Lymphocytes % (A) 22 %; MCH 30.6 pg (25.0-35.0); MCHC 32.1 g/dL (31.0-37.0); MCV 95.1 fL (80.0-100.0); Mean Platelet Volume 7.4; Monocytes # (A) 0.4 k/uL (0-1.0); Monocytes % (A) 6 %; Neutrophils # (A) 3.9 k/uL (1.3-7.7); Neutrophils % (A) 65 %; Platelet Count 162 k/uL (150-450); RBC 5.34 m/uL (4.30-5.90); RDW 12.9 % (11.5-15.5)
[2023-04-23 07:42] LABS: African American GFR (CKD) >90 (>60 ml/min/1.73 sqM); Anion Gap 4 mmol/L; Blood Urea Nitrogen 15 mg/dL (9-20); Calcium 8.7 mg/dL (8.4-10.2); Carbon Dioxide 29 mmol/L (22-30); Chloride 105 mmol/L (98-107); Glucose 117 mg/dL (74-99); Non-African American GFR(CKD) >90 (>60 ml/min/1.73 sqM); Potassium 4.5 mmol/L (3.5-5.1); Sodium 138 mmol/L (137-145)
[2023-04-23 07:55] VITALS: BP 153/91; RESP 20; TEMP 97.6
--- NOTE | 2023-04-23 07:58 | CONS ---
CONSULTATION CHIEF COMPLAINT: Palpitations. HISTORY OF PRESENT ILLNESS: Jose is a 57-year-old gentleman with history of atrial fibrillation, who presented to hospital with sustained palpitations and was found to be in atrial fibrillation with poorly controlled ventricular rate. At the time of my evaluation, he was on Cardizem with better controlled ventricular rate and started on Eliquis. The patient denies any chest pain, difficulty in breathing, dizziness, or syncope. His lab showed that the troponin was negative. Hemoglobin was normal. Platelet count is 156. There is no prior history of hypertension, diabetes, dyslipidemia. There is no history of cardiomyopathy or congestive heart failure. PAST MEDICAL HISTORY: Significant for paroxysmal atrial fibrillation. MEDICATIONS AT HOME: He was not on any. FAMILY HISTORY: Negative for premature coronary artery disease. SOCIAL HISTORY: Negative for smoking, EtOH abuse, or drug abuse. REVIEW OF SYSTEMS: 14 out of 14 review of systems has been performed. Pertinents are as documented. PHYSICAL EXAMINATION: GENERAL: Comfortable at rest. VITAL SIGNS: Stable. NECK: There is no jugular venous distention. CHEST: Reveals good air entry bilaterally. HEART: Reveals first and second heart sounds. Irregular rhythm. No murmur. ABDOMEN: Soft. EXTREMITIES: Did not reveal any edema. Peripheral pulses are felt. COVER SEAMER: Did not reveal focal neurological deficits. ASSESSMENT: Paroxysmal atrial fibrillation. PLAN: I will continue the patient on Cardizem and Eliquis. If he remains in AFib, tomorrow Dr. Reeves, who cardioverted him last, will do a SRIRAM cardioversion. MMODL / IJN: [id number] /
[2023-04-23] MEDS: THIAMINE 100 MG TAB PO SCH (08:35)
[2023-04-23] MEDS: APIXABAN 5 MG TAB PO SCH (08:35)
[2023-04-23] MEDS ORDERED: FAMOTIDINE 20 MG TAB PO SCH (09:00)
--- NOTE | 2023-04-23 09:06 | CA ---
Transthoracic Echo Report Name: Jose Chang Age: 57 Gender: M : 1965 Exam Date: 04/23/2023 08:09 Exam Location: [place] [facility] Ht (in): 76 Wt (lb): 290 Ordering Physician: Lloyd Garner MD ([id number]) Attending/Referring Phys: Patsy HINOJOSA Rn Imaging Lashon Ly RDCS Procedure CPT: Indications: afib rvr Cardiac Hx: Technical Quality: Good Contrast 1: Total Dose (mL): Contrast 2: Total Dose (mL): MEASUREMENTS (Male / Female) Normal Values 2D ECHO LV Diastolic Diameter PLAX 5.0 cm 4.2 - 5.9 / 3.9 - 5.3 cm LV Systolic Diameter PLAX 3.5 cm IVS Diastolic Thickness 1.5 cm 0.6 - 1.0 / 0.6 - 0.9 cm LVPW Diastolic Thickness 1.4 cm 0.6 - 1.0 / 0.6 - 0.9 cm LV Relative Wall Thickness 0.6 RV Internal Dim ED PLAX 3.7 cm LA Systolic Diameter LX 4.1 cm 3.0 - 4.0 / 2.7 - 3.8 cm LA Volume 67.7 cm??? 18 - 58 / 22 - 52 cm??? M-MODE Aortic Root Diameter MM 3.6 cm AV Cusp Separation MM 2.3 cm DOPPLER AV Peak Velocity 145.6 cm/s AV Peak Gradient 8.5 mmHg MV Area PHT 4.8 cm??? Mitral E Point Velocity 98.7 cm/s Mitral A Point Velocity 74.0 cm/s Mitral E to A Ratio 1.3 MV Deceleration Time 159.3 ms MV E' Velocity 8.5 cm/s Mitral E to MV E' Ratio 11.6 FINDINGS Left Ventricle Left ventricular ejection fraction is estimated at 55-60 %. Left ventricular cavity size normal. Moderate concentric left ventricular hypertrophy. Right Ventricle Mild right ventricular dilatation. Unable to estimate the right ventricular systolic pressure. Right Atrium Normal right atrial size. Left Atrium Mildly increased left atrial diameter. Mildly increased left atrial volume. Mildly increased left atrial area. Mitral Valve Structurally normal mitral valve. No mitral stenosis, regurgitation or prolapse. Aortic Valve Trileaflet aortic valve. No aortic valve stenosis or regurgitation. Tricuspid Valve Structurally normal tricuspid valve. No tricuspid stenosis, regurgitation or prolapse. Pulmonic Valve Pulmonic valve not well visualized. Pericardium Normal pericardium. No pericardial effusion. Aorta Normal size aortic root and proximal ascending aorta. CONCLUSIONS Normal LV systolic function Mild left atrial enlargement Previewed by: Dr. Lloyd Garner MD (Electronically Signed) Final Date: 23 April 2023 09:06
--- NOTE | 2023-04-23 09:07 | PN ---
PROGRESS NOTE SUBJECTIVE: A 57-year-old gentleman with paroxysmal atrial fibrillation who is admitted to hospital with atrial fibrillation with poorly controlled ventricular rate. He converted back to sinus rhythm. This morning, he is doing well and is free of symptoms. I will stop the Cardizem. We will add Toprol-XL 25 mg daily. Continue Eliquis. I will follow the echocardiogram. He will be discharged home later today and follow up with Dr. Reeves in the office and hoping that the Eliquis can be stopped within the next 3 weeks. OBJECTIVE: GENERAL: On exam today, he is comfortable at rest. VITAL SIGNS: Stable. NECK: There is no jugular venous distention. CHEST: Reveals good air entry bilaterally. HEART: Reveals first and second heart sounds. No gallop. EXTREMITIES: Exam of extremities did not reveal any edema. Peripheral pulses are felt. ASSESSMENT: Paroxysmal atrial fibrillation. PLAN: The patient is doing well. He will continue with his current medications, stable for discharge. Followup with Dr. Reeves. MMODL / IJN: [id number] /
[2023-04-23] MEDS ORDERED: LOSARTAN 25 MG TAB PO SCH (12:30)
== END 2023-04-23 13:06 | disposition home or self-care (01) ==
LOC: EC 07:25 → 6NMEDSUR 10:47
PROVIDERS: ADMIT Internal Medicine; ATTEND Internal Medicine
DX: I48.0 Paroxysmal atrial fibrillation (principal); I10 Essential (primary) hypertension; J44.9 Chronic obstructive pulmonary disease, unspecified; F17.210 Nicotine dependence, cigarettes, uncomplicated; Z68.35 Body mass index [BMI] 35.0-35.9, adult; E66.9 Obesity, unspecified; Z79.01 Long term (current) use of anticoagulants; Z98.890 Other specified postprocedural states; Z80.9 Family history of malignant neoplasm, unspecified; F10.90 Alcohol use, unspecified, uncomplicated
CPT/HCPCS: 96366 ×2; 96375; 96376; 96365; 99285; 36415; 94760; 93005; 93306; 80053; 80048; 83735; 84484; 85025 ×2; 85610; 85730; 71046; G0378 ×2; S4990

== ENCOUNTER → 2023-06-08 | Outpatient (CLI) | payer BC ==
--- NOTE | 2023-06-09 13:19 | CTL ---
EXAMINATION TYPE: CT Low Dose Lung DATE OF EXAM: 06/08/2023 4:47 PM CLINICAL INDICATION:Male, 57 years old with history of Z12.1, F17.210,R91.1, R91.8; current smoker 1 pack a day x 40 years. , history of tobacco use. COMPARISON: Chest radiographs 04/22/2023 TECHNIQUE: Multiple axial non-contrast scans were obtained from approximately the lung apices through the upper abdomen. Coronal and sagittal reformatted images were obtained. Low dose technique was uti lized. CT DLP: 173.10 mGycm, Automated exposure control for dose reduction was used. CT Contrast: Contrast used: None Oral contrast used: None FINDINGS: ======== Lack of intravenous contrast and low dose technique limits the evaluation of the vascular and soft ti ssue structures. LUNGS: No evidence of pulmonary fibrosis. No evidence of focal consolidation, pneumothorax or pleural effusion. Mild paraseptal and centrilobular emphysema changes Nodules: RUL: None. RML: None. RLL: None. CHLOE: None. LLL: None. AIRWAY: Patent and unremarkable. HEART: Size within normal limits. Coronary artery calcifications. MEDIASTINUM: No gross evidence of adenopathy. VASCULATURE: No aortic aneurysm. MUSCULOSKELETAL: No acute osseous abnormalities SOFT TISSUES/LYMPH NODES: Unremarkable. LOWER NECK: No significant findings. UPPER ABDOMEN: No significant findings. IMPRESSION: 1. No pulmonary nodules. 2. Mild emphysema changes. CT LUNG RAD AND CT CHEST RECOMMENDATION: Lung-Rad 1 Negative: Continue annual screening with LDCT in 12 months. S Modifier (other clinically significant findings): None Recommend smoking cessation (if current smoker), or continuation of smoking cessation (if prior smoke r). Annual screening for lung cancer with low-dose computed tomography is recommended in adults ages 55 to 77 years who have a 30 pack-year smoking history and currently smoke or have quit within the pa st 15 years. Screening should be discontinued once a person has not smoked for 15 years or develops a health problem that substantially limits life expectancy or the ability or willingness to have curat lizbeth lung surgery. Lung rads 2021 [email or web address]
== END | disposition home or self-care (01) ==
LOC: RADCTMAIN 16:18
PROVIDERS: ATTEND Family Medicine
DX: Z12.2 Encounter for screening for malignant neoplasm of respiratory organs (principal); J43.2 Centrilobular emphysema; F17.210 Nicotine dependence, cigarettes, uncomplicated; R91.8 Other nonspecific abnormal finding of lung field
CPT/HCPCS: 71271

== ENCOUNTER 2024-04-18 08:50 | Emergency (ER) | payer BC ==
--- NOTE | 2024-04-18 09:20 | ED ---
General Adult HPI - General Chief complaint: Arrhythmia/Palpitations Stated complaint: AFIB Time Seen by Provider: 04/18/24 09:00 Source: patient, RN notes reviewed, old records reviewed Mode of arrival: ambulatory Limitations: no limitations - History of Present Illness Initial comments: 58-year-old male presenting with palpitation. Patient has history of atrial fibrillation he is on metoprolol, amiodarone and Eliquis. He was started on amiodarone approximately 5 days ago by his dye range operator. He states that he did have a period of time where he was in sinus rhythm but has again entered into atrial fibrillation with an irregular heartbeat sensation. He denies chest pain. Denies dyspnea. He has no complaints. Patient states his heart rate has been between 80 and 100. - Related Data Previous Rx's Medication Instructions Recorded Apixaban [Eliquis] 5 mg PO BID 30 Days #60 tab 04/23/23 Losartan [Cozaar] 25 mg PO DAILY #30 tab 04/23/23 Thiamine [Vitamin B-1] 100 mg PO DAILY #30 tab 04/23/23 Allergies Allergy/AdvReac Type Severity Reaction Status Date / Time No Known Allergies Allergy Verified 04/18/24 11:04 Review of Systems ROS Statement: Those systems with pertinent positive or pertinent negative responses have been documented in the HPI. ROS Other: All systems not noted in ROS Statement are negative. Past Medical History Past Medical History: Atrial Fibrillation, Atrial Flutter, Hypertension History of Any Multi-Drug Resistant Organisms: None Reported Past Surgical History: Hernia Repair Additional Past Surgical History / Comment(s): hernia repair in 1987 Past Anesthesia/Blood Transfusion Reactions: No Reported Reaction Past Psychological History: No Psychological Hx Reported Smoking Status: Current every day smoker Past Alcohol Use History: Daily Past Drug Use History: None Reported - Past Family History Mother Family Medical History: Cancer General Exam Limitations: no limitations General appearance: alert, in no apparent distress Head exam: Present: atraumatic, normocephalic Eye exam: Present: normal appearance, PERRL ENT exam: Present: normal exam Neck exam: Present: normal inspection. Absent: tenderness Respiratory exam: Present: normal lung sounds bilaterally. Absent: respiratory distress, wheezes Cardiovascular Exam: Present: regular rate, irregular rhythm GI/Abdominal exam: Present: soft. Absent: distended, tenderness, guarding Extremities exam: Present: normal inspection, normal capillary refill. Absent: pedal edema, calf tenderness Neurological exam: Present: alert, oriented X3, CN II-XII intact. Absent: motor sensory deficit Psychiatric exam: Present: normal affect, normal mood Skin exam: Present: warm, dry, intact. Absent: cyanosis, diaphoretic Course Vital Signs 04/18/24 08:53 Temperature 98.3 F Pulse Rate 101 H Respiratory 18 Rate Blood Pressure 128/78 O2 Sat by Pulse 97 Oximetry Medical Decision Making - Medical Decision Making Was pt. sent in by a medical professional or institution (, MELYSSA, SHIPPING SUPPORT CLERK, urgent care, hospital, or prison...) When possible be specific @ -No Did you speak to anyone other than the patient for history (EMS, parent, family, police, friend...)? What history was obtained from this source @ -No Did you review nursing and triage notes (agree or disagree)? Why? @ -I reviewed and agree with nursing and triage notes Were old charts reviewed (outside hosp., previous admission, EMS record, old EKG, old radiological studies, urgent care reports/EKG's, prison records)? Report findings @ -No old charts were reviewed Differential Palpitations Ventricular arrhythmias, atrial arrhythmias, myocardial infarction, anemia, thyr otoxicosis, electrolyte imbalance, hypokalemia, pulmonary embolism, pulmonary disease, drugs, alcohol, anxiety, stress.... This is not meant to be an all-inclusive list. EKG interpreted by me (3pts min.). @ -Atrial flutter with variable AV block rate of 95, QRS duration 116, QTc 416, no ST segment elevation X-rays interpreted by me (1pt min.). @ -None done CT interpreted by me (1pt min.). @ -None done U/S interpreted by me (1pt. min.). @ -None done What testing was considered but not performed or refused? (CT, X-rays, U/S, labs)? Why? @ -None What meds were considered but not given or refused? Why? @ -None Did you discuss the management of the patient with other professionals (lety rajput i.MELYSSA [address] SHIPPING SUPPORT CLERK, lab, RT, psych nurse, social studies teacher, calcine furnace tender, teacher, correctional probation officer, senior case manager)? Give summary @ -Dr. Reeves paged awaiting callback Was smoking cessation discussed for >3mins.? @ -No Was critical care preformed (if so, how long)? @ -No Were there social determinants of health that impacted care today? How? (Homelessness, low income, unemployed, alcoholism, drug addiction, transportation, low edu. Level, literacy, decrease access to med. care, senior living, rehab)? @ -No Was there de-escalation of care discussed even if they declined (Discuss DNR or withdrawal of care, Hospice)? DNR status @ -No What co-morbidities impacted this encounter? (DM, HTN, Smoking, COPD, CAD, Cancer, CVA, ARF, Chemo, Hep., AIDS, mental health diagnosis, sleep apnea, morbid obesity)? @ -Atrial fibrillation Was patient admitted / discharged? Hospital course, mention meds given and rout e, prescriptions, significant lab abnormalities, going to OR and other pertinent info. @ -58-year-old male in rate controlled A-fib without any complaints. Normal CBC, normal CMP, negative troponin. I did attempt to contact the patient's dye range operator without call back. I do feel the patient is stable for discharge at this time with continued monitoring of symptoms. He he should return to the emergency department as needed. Undiagnosed new problem with uncertain prognosis? @ -No Drug Therapy requiring intensive monitoring for toxicity (Heparin, Nitro, Insulin, Cardizem)? @ -No Were any procedures done? @ -No Diagnosis/symptom? @ -Rate controlled A-fib Acute, or Chronic, or Acute on Chronic? @ -Chronic Uncomplicated (without systemic symptoms) or Complicated (systemic symptoms)? @ -[ Side effects of treatment? @ -No Exacerbation, Progression, or Severe Exacerbation? @ -No Poses a threat to life or bodily function? How? (Chest pain, [place], [place], pneumonia, PE, COPD, DKA, ARF, appy, cholecystitis, CVA, Diverticulitis, Homicidal, Suicidal, threat to staff... and all critical care pts) @ -Low risk at this time] - Lab Data Result diagrams: 04/18/24 10:07 04/18/24 10:07 Lab Results 04/18/24 04/18/24 04/18/24 Range/Units 10:07 10:07 10:07 WBC 6.9 (3.8-10.6) k/uL RBC 5.49 (4.30-5.90) m/uL Hgb 16.0 (13.0-17.5) gm/dL Hct 48.7 (39.0-53.0) % MCV 88.7 (80.0-100.0) fL MCH 29.1 (25.0-35.0) pg MCHC 32.8 (31.0-37.0) g/dL RDW 13.5 (11.5-15.5) % Plt Count 215 (150-450) k/uL MPV 8.1 Neutrophils % 72 % Lymphocytes % 16 % Monocytes % 7 % Eosinophils % 2 % Basophils % 1 % Neutrophils # 4.9 (1.3-7.7) k/uL Lymphocytes # 1.1 (1.0-4.8) k/uL Monocytes # 0.5 (0-1.0) k/uL Eosinophils # 0.1 (0-0.7) k/uL Basophils # 0.0 (0-0.2) k/uL Sodium 140 (137-145) mmol/L Potassium 4.6 (3.5-5.1) mmol/L Chloride 106 (98-107) mmol/L Carbon Dioxide 27 (22-30) mmol/L Anion Gap 7 mmol/L BUN 15 (9-20) mg/dL Creatinine 0.82 (0.66-1.25) mg/dL Est GFR (CKD-EPI)AfAm >90 (>60 ml/min/1.73 sqM) Est GFR (CKD-EPI)NonAf >90 (>60 ml/min/1.73 sqM) Glucose 121 H (74-99) mg/dL Calcium 9.4 (8.4-10.2) mg/dL Total Bilirubin 0.6 (0.2-1.3) mg/dL AST 25 (17-59) U/L ALT 35 (4-49) U/L Alkaline Phosphatase 134 H (38-126) U/L Troponin I <0.012 (0.000-0.034) ng/mL Total Protein 7.0 (6.3-8.2) g/dL Albumin 4.3 (3.5-5.0) g/dL Disposition Clinical Impression: Atrial flutter Disposition: HOME SELF-CARE Condition: Good Instructions (If sedation given, give patient instructions): A-fib (Atrial Fibrillation) (ED) Is patient prescribed a controlled substance at d/c from ED?: No Referrals: Irina Cortez MD [Primary Care Provider] - 1-2 days Dario Reeves DO [STAFF PHYSICIAN] - 1-2 days Time of Disposition: 10:56
[2024-04-18 10:19] LABS: Basophils % (A) 1 %; Eosinophils # (A) 0.1 k/uL (0-0.7); Eosinophils % (A) 2 %; HCT 48.7 % (39.0-53.0); Lymphocytes # (A) 1.1 k/uL (1.0-4.8); Lymphocytes % (A) 16 %; MCH 29.1 pg (25.0-35.0); MCHC 32.8 g/dL (31.0-37.0); MCV 88.7 fL (80.0-100.0); Mean Platelet Volume 8.1; Monocytes # (A) 0.5 k/uL (0-1.0); Monocytes % (A) 7 %; Neutrophils # (A) 4.9 k/uL (1.3-7.7); Neutrophils % (A) 72 %; Platelet Count 215 k/uL (150-450); RBC 5.49 m/uL (4.30-5.90); RDW 13.5 % (11.5-15.5); WBC 6.9 k/uL (3.8-10.6)
[2024-04-18 10:30] LABS: ALT 35 U/L (4-49); AST 25 U/L (17-59); African American GFR (CKD) >90 (>60 ml/min/1.73 sqM); Albumin 4.3 g/dL (3.5-5.0); Alkaline Phosphatase 134 U/L (38-126); Anion Gap 7 mmol/L; Blood Urea Nitrogen 15 mg/dL (9-20); Calcium 9.4 mg/dL (8.4-10.2); Carbon Dioxide 27 mmol/L (22-30); Chloride 106 mmol/L (98-107); Glucose 121 mg/dL (74-99); Non-African American GFR(CKD) >90 (>60 ml/min/1.73 sqM); Potassium 4.6 mmol/L (3.5-5.1); Sodium 140 mmol/L (137-145); Total Bilirubin 0.6 mg/dL (0.2-1.3)
[2024-04-18 11:47] VITALS: BP 135/82; PULSE 77; RESP 19; TEMP 97.8
== END 2024-04-18 11:11 | disposition home or self-care (01) ==
LOC: EC 08:50
DX: I48.91 Unspecified atrial fibrillation (principal); I48.92 Unspecified atrial flutter; F17.200 Nicotine dependence, unspecified, uncomplicated; Z79.01 Long term (current) use of anticoagulants
CPT/HCPCS: 36415; 80053; 84484; 85025; 99285

== ENCOUNTER → 2024-05-04 | Outpatient (CLI) | payer BC ==
--- NOTE | 2024-05-04 17:40 | US ---
EXAMINATION TYPE: US carotid duplex BILAT DATE OF EXAM: 05/04/2024 COMPARISON: NONE CLINICAL INDICATION: Male, 58 years old with history of R60.0 BLE EDEMA I73.9 PAD I65.23 BI CAROTID S TENOS; a-fib TECHNIQUE: Carotid duplex ultrasound examination. Indirect Doppler criteria was utilized. FINDINGS: EXAM MEASUREMENTS: RIGHT: Peak Systolic Velocity (PSV) cm/sec ----- Right CCA: 74.8 ----- Right ICA: 78.9 ----- Right ECA: 88.4 ICA/CCA ratio: 1.1 RIGHT: End Diastole cm/sec ----- Right CCA: 14.8 ----- Right ICA: 27.1 ----- Right ECA: 5.3 LEFT: Peak Systolic Velocity (PSV) cm/sec ----- Left CCA: 72.5 ----- Left ICA: 72.4 ----- Left ECA: 74.9 ICA/CCA ratio: 1.0 LEFT: End Diastole cm/sec ----- Left CCA: 16.0 ----- Left ICA: 25.2 ----- Left ECA: 5.0 VERTEBRALS (direction of flow): Right Vertebral: Antegrade Left Vertebral: Antegrade Rhythm: Arrhythmia [employer] NOTES: very minimal plaque bilaterally, no evidence of stenosis, no elevated ratios or ve locities IMPRESSION: 1. Minimal atheromatous plaque of the carotid bifurcations. 2. No hemodynamically significant stenosis based on peak systolic velocities and ratios Criteria for Assigning % of Stenosis / Diameter reduction (Estimation based on the indirect measurements of the internal carotid artery velocities (ICA PSV). 1. Normal (no stenosis)=ICA PSV < 125 cm/s: ratio < 2.0: ICA EDV<40 cm/s. 2. Less than 50% stenosis=ICA PSV < 125 cm/s: ratio < 2.0: ICA EDV<40 cm/s. 3. 50 to 69% stenosis=ICA PSV of 125 to 230 cm/s: ration 2.0 ? 4.0: ICA EDV 40-100 cm/s. 4. Greater than 70% stenosis to near occlusion= ICA PSV > 230 cm/s: ratio > 4.0: ICA EDV > 100 cm/s. 5. Near occlusion= ICA PSV velocities may be low or undetectable: variable ratio and ICA EDV. 6. Total occlusion=unable to detect flow.
--- NOTE | 2024-05-04 17:43 | US ---
EXAMINATION TYPE: US venous doppler duplex LE BI DATE OF EXAM: 05/04/2024 2:07 PM COMPARISON: NONE CLINICAL INDICATION: Male, 58 years old with history of R60.0 BLE EDEMA I73.9 PAD I65.23 BI CAROTID S TENOS; leg edema SIDE PERFORMED: Bilateral TECHNIQUE: The lower extremity deep venous system is examined utilizing real time linear array sonog nolan with graded compression, doppler sonography and color-flow sonography. VESSELS IMAGED: Common Femoral Vein Deep Femoral Vein Greater Saphenous Vein * Femoral Vein Popliteal Vein Small Saphenous Vein * Proximal Calf Veins (* superficial vessels) The deep venous systems of both lower extremities from the common femoral remains to the proximal riley f veins are patent and compressible with augmentable flow and with normal waveforms. IMPRESSION: No evidence of bilateral lower extremity DVT from the common femoral veins to the proximal calf veins
--- NOTE | 2024-05-04 17:46 | US ---
EXAMINATION TYPE: US arterial LE single level DATE OF EXAM: 05/04/2024 2:46 PM CLINICAL INDICATION: Male, 58 years old with history of R60.0 BLE EDEMA I73.9 PAD I65.23 BI CAROTID S TENOS; a-fib, rt leg edema History of: Smoker: Current Smoker Hypertension: Yes Diabetic: No Hyperlipidemia: No TIA/CVA: No Previous Vascular Surgery: No CAD: No PA: No Vascular Ulcers: No Claudication: No Gangrene: No Doppler Waveforms: Right: Monophasic Left: Monophasic Right Brachial Pressure: 124 Left Brachial Pressure: 126 Ankle-Brachial Indices: Right: 1.01 Left: 1.06 (Vessel hardening > 1.4; Normal 0.9 - 1.4, Moderate 0.7 - 0.9, Severe 0.5-0.7) normal Toe Brachial Indices: Right: 0.83 Left: 0.81 IMPRESSION: No evidence of significant peripheral arterial disease of the lower extremities.
== END | disposition home or self-care (01) ==
LOC: RADUSWWP 13:16
PROVIDERS: ATTEND Internal Medicine
DX: I70.90 Unspecified atherosclerosis (principal); R60.0 Localized edema; I73.9 Peripheral vascular disease, unspecified; I65.23 Occlusion and stenosis of bilateral carotid arteries
CPT/HCPCS: 93880; 93922; 93970

== ENCOUNTER 2024-05-17 11:42 | Day surgery (SDC) | payer BC ==
[2024-05-12 09:21] VITALS: BMI 35.9
[~2024-05-17 11:42] MED LIST: LIDOCAINE 1% (10MG/ML) FOR IV START INTRADERMA PRN
[2024-05-17 12:15] VITALS: TEMP 97.8
[2024-05-17] MEDS: SODIUM CHLORIDE 0.9% 500 ML 500 ML IV SCH (12:20)
[2024-05-17] MEDS: LACTATED RINGERS 1,000 ML IV SCH (12:20)
[2024-05-17] MEDS: IV FLUID CONTINUATION 500 ML IV ONE (12:20)
[2024-05-17] MEDS ORDERED: PROPOFOL 10 MG/ML 20 ML VIAL IV ONE (12:56)
[2024-05-17] MEDS ORDERED: MIDAZOLAM 2 MG/2 ML VIAL ONE (12:56)
[2024-05-17 13:06] LABS: African American GFR (CKD) >90 (>60 ml/min/1.73 sqM); Anion Gap 4 mmol/L; Blood Urea Nitrogen 16 mg/dL (9-20); Calcium 9.4 mg/dL (8.4-10.2); Carbon Dioxide 30 mmol/L (22-30); Chloride 104 mmol/L (98-107); Glucose 97 mg/dL (74-99); Non-African American GFR(CKD) >90 (>60 ml/min/1.73 sqM); Potassium 4.2 mmol/L (3.5-5.1); Sodium 138 mmol/L (137-145)
[2024-05-17] MEDS: BENZOCAINE SPRAY 1 CAN MUCOUS MEM STA (13:19)
[2024-05-17 14:16] VITALS: PULSE 65; RESP 18
[2024-05-17 14:28] VITALS: BP 112/73
--- NOTE | 2024-05-17 14:49 | P.TEE ---
Description of Procedure(s): Procedure performed: Transesophageal Echocardiogram with color flow doppler, pulsed wave doppler and continuous wave doppler, synchronized cardioversion Moderate conscious sedation: Moderate conscious sedation was supplied by anesthesia, see separate report. Complications: none Indications: atrial fibrillation PROCEDURE: After the risks, benefits and alternatives of the above mentioned procedure was explained in detail with the patient, informed consent was obtained. Patient was brought to the lab in a fasting state. Patient was given sedation by anesthesia, see separate report. The throat was sprayed with Hurricane to anesthetize the throat. A lubricated Omni probe was then introduced into the esophagus and stomach and multiple views were obtained. 2D echo with color flow doppler, pulsed wave doppler and continuous wave doppler was utilized. Agitated saline bubbles were injected to assess for any intra-atrial shunt. The probe was then removed. There was no thrombus noted and therefore patient underwent synchronized cardioversion x 1 with 200J with resultant sinus rhythm. Patient tolerated the procedure well. Patient was transferred to the post procedure area in stable and satisfactory condition. FINDINGS: 1. The aortic valve is tricuspid and function normally. 2. The mitral valve appears be normal with mild regurgitation. 3. Tricuspid valve appears to be normal. 4. There is late shunting by bubble study however no obvious bubbles crossing the septum. May be consistent with pulmonary AVM 5. Left atrial appendage is free of clot. 6. Left ventricular EF is 45% with global hypokinesis
== END 2024-05-17 14:51 | disposition home or self-care (01) ==
LOC: OR 11:42
PROVIDERS: ATTEND Internal Medicine
DX: I34.0 Nonrheumatic mitral (valve) insufficiency (principal); I48.91 Unspecified atrial fibrillation; G47.33 Obstructive sleep apnea (adult) (pediatric); E66.01 Morbid (severe) obesity due to excess calories; Z79.51 Long term (current) use of inhaled steroids; Z79.01 Long term (current) use of anticoagulants; Z79.899 Other long term (current) drug therapy; Z98.890 Other specified postprocedural states; Z68.35 Body mass index [BMI] 35.0-35.9, adult
CPT/HCPCS: 93312; 93320; 93325; 92960; 80048; J2250; J2704

== ENCOUNTER → 2025-01-15 | Outpatient (CLI) | payer BC ==
--- NOTE | 2025-01-15 16:12 | CTL ---
EXAMINATION TYPE: CT Low Dose Lung DATE OF EXAM: 01/15/2025 10:55 AM COMPARISON: None. SCREENING VISIT: Initial CT DIAGNOSTIC QUALITY: Satisfactory CLINICAL INDICATION: Male, 59 years old with history of F17.210 nicotine dependence, Hx of tobacco us e., Lung cancer screening, History of tobacco use. TECHNIQUE: Low dose computed tomography scan was performed through the chest at 1 mm thick sections a nd reconstructed images in the coronal plane at 1 mm thick sections. Contrast used: mL of , (none if empty) Oral contrast used: (none if empty) CT DLP: 107.1 mGycm, Automated exposure control for dose reduction was used. CT CTDI: 2.6 mGy, Automated exposure control for dose reduction was used. FINDINGS: LUNG NODULES: None. LUNGS: COPD: Severity: None Fibrosis: Severity: None Lymph nodes: There is a 1.1 cm lymph node in the pretracheal space. Series 3 image 102.r Other findings: None RIGHT PLEURAL SPACE: Effusion: None Calcification: None Thickening: None Pneumothorax: None LEFT PLEURAL SPACE: Effusion: None Calcification: None Thickening: None Pneumothorax: None HEART: Other: Ascending thoracic aorta at the level the main pulmonary artery measures 4.6 cm. The main pul monary artery at the bifurcation measures 3.8 cm. Heart Size: Normal Coronary calcification: Mild Pericardial effusion: None OTHER FINDINGS: Upper abdomen: Normal Bony thorax: Normal Supraclavicular region: Normal IMPRESSION: 1. No suspicious changes for primary or metastatic neoplasm. 2. Ascending thoracic aortic aneurysm 4.[address] CHEST RECOMMENDATION: Follow-up low-dose CT chest one year CT LUNG RAD: Lung-Rad 1 Negative [facility], , 01/15/2025 4:10 PM
== END | disposition home or self-care (01) ==
LOC: RADCTMAIN 10:19
PROVIDERS: ATTEND Internal Medicine
DX: Z12.2 Encounter for screening for malignant neoplasm of respiratory organs (principal); F17.210 Nicotine dependence, cigarettes, uncomplicated; I71.21 Aneurysm of the ascending aorta, without rupture
CPT/HCPCS: 71271

== ENCOUNTER → 2025-01-25 | Outpatient (CLI) | payer BC ==
--- NOTE | 2025-01-25 12:27 | XR ---
EXAMINATION TYPE: XR chest 2V DATE OF EXAM: 01/25/2025 12:09 PM COMPARISON: Chest radiographs from 04/22/2023 CLINICAL INDICATION: Male, 59 years old with history of J44.9 COPD; [facility] TECHNIQUE: XR chest 2V Frontal and lateral views of the chest. FINDINGS: Lungs/Pleura: There is no evidence of pleural effusion, focal consolidation, or pneumothorax. Pulmonary vascularity: Unremarkable. Heart/mediastinum: Cardiomediastinal silhouette is unremarkable. Musculoskeletal: No acute osseous pathology. Other findings: None IMPRESSION: No acute cardiopulmonary disease/process. [facility], , 01/25/2025 12:25 PM
== END | disposition home or self-care (01) ==
LOC: RADXRMAIN 11:57
PROVIDERS: ATTEND Internal Medicine
DX: J44.9 Chronic obstructive pulmonary disease, unspecified (principal)
CPT/HCPCS: 71046